=== PATIENT | male | born 1985 | race Caucasian/White ===

== ENCOUNTER 2021-07-20 11:33 | Emergency (ER) | payer OTHER ==
[2021-07-20 11:56] VITALS: BP 122/80; PULSE 77; TEMP 97; BMI 20.5
[2021-07-20] MEDS ORDERED: IBUPROFEN 400 MG TABLET (FP) PO ONE ×2 (12:02→12:03)
[2021-07-20] MEDS ORDERED: METHOCARBAMOL 500 MG TABLET PO ONE (12:02)
[2021-07-20] MEDS ORDERED: METHOCARBAMOL 500 MG TABLET ONE (12:03)
== END 2021-07-20 12:27 | disposition home or self-care (01) ==
LOC: JER 11:33 → JERFT 11:33
DX: S39.012A Strain of muscle, fascia and tendon of lower back, initial encounter (principal); X50.0XXA Overexertion from strenuous movement or load, initial encounter
CPT/HCPCS: 72100-TC-FY; 99283-25

== ENCOUNTER 2021-12-05 10:16 | Emergency (ER) | payer OTHER ==
[2021-12-05 10:41] VITALS: BP 118/79; PULSE 95; TEMP 98; BMI 21.7
[2021-12-05] MEDS ORDERED: IBUPROFEN 600 MG TABLET (FP) PO ONE ×2 (11:00→11:14)
[2021-12-05] MEDS ORDERED: DIPHTH,PERTUSS(ACELL),TET 0.5 ML DISP.SYRIN IM ONE ×2 (11:02→11:14)
== END 2021-12-05 13:11 | disposition home or self-care (01) ==
LOC: JERFT 10:16 → JER 10:16 → JERFT 13:11
PROC: 3E0234Z Introduction of Serum, Toxoid and Vaccine into Muscle, Percutaneous Approach (ICD-10-PCS; principal; 2021-12-05)
DX: S20.212A Contusion of left front wall of thorax, initial encounter (principal); W19.XXXA Unspecified fall, initial encounter; Y92.9 Unspecified place or not applicable
CPT/HCPCS: 71046-TC-FY; 71101-TC-LT-FY; 90471; 90715; 99284-25